=== PATIENT | male | born 1955 | race Caucasian/White ===

== ENCOUNTER → 2016-07-09 | Outpatient (CLI) | payer OTHER ==
[~2016-07-09] MED LIST: ASPIRIN PO; LIPITOR PO; LISINOPRIL10 MG PO; METOPROLOL SUC100 MG PO; [UNRECOGNIZED DRUG - REMARK]
--- NOTE | ~2016-07-09 | CR142 ---
[facility] A Service of [facility] RADIOLOGY TEXT RESULTS PATIENT: LATANYA ORTEGA LOCATION: [facility] : 59 UNIT #: [id number] AGE: [address]: Celena Tavarez MD SEX: M ORDER DR: [id number] [facility] [address] [place], [place] [address] [id number] O MR#: [id number] Acc #: [id number] NAME: LATANYA ORTEGA : 1955 SEX: M STUDY DATE/TIME: 07/09/2016 10:46 UNIT: [facility] ROOM: STUDY DESCRIPTION: CR Hand Min 3 Views Rt Attending Physician: Celena Tavarez M.D. Ordering Physician: Celena Tavarez M.D. Primary Care Physician: Celena Tavarez M.D. MEDICAL IMAGING REPORT This report is preliminary unless electronic signature is present EXAM Right hand, 3 views. HISTORY Arthritis hand pain for 6 months to a year. Limited range of motion. FINDINGS 3 views of the right hand demonstrates no fracture or dislocation. Minimal arthritic changes seen at the DIP joints of the index, long finger. Mild arthritic changes of the IP joint of the thumb. No erosive changes identified. Minimal arthritic changes are also seen at the third MCP joint. Soft tissues are unremarkable. IMPRESSION Multifocal arthritis pattern most compatible with osteoarthritis or degenerative arthropathy primarily involving the DIP joints of the index and long finger and also at the IP joint of the thumb. No evidence of erosive or inflammatory arthropathy. Dictated by... Virgie Kat M.D. THIS IS AN ELECTRONICALLY VERIFIED REPORT Virgie Kat M.D. at 07/10/2016 5:02 PM ADELINE/bo TD: 07/10/2016 10:42 JOB #: [id number] MEDICAL IMAGING REPORT COPY
--- NOTE | ~2016-07-09 | CR141 ---
[facility] A Service of [facility] RADIOLOGY TEXT RESULTS PATIENT: LATANYA ORTEGA LOCATION: [facility] : 59 UNIT #: [id number] AGE: [address]: Celena Tavarez MD SEX: M ORDER DR: [id number] [facility] [address] [place], [place] [address] [id number] O MR#: [id number] Acc #: [id number] NAME: LATANYA ORTEGA : 1955 SEX: M STUDY DATE/TIME: 07/09/2016 10:46 UNIT: [facility] ROOM: STUDY DESCRIPTION: CR Hand Min 3 Views Lt Attending Physician: Celena Tavarez M.D. Ordering Physician: Celena Tavarez M.D. Primary Care Physician: Celena Tavarez M.D. MEDICAL IMAGING REPORT This report is preliminary unless electronic signature is present EXAM Left hand, 3 views. HISTORY 60-year-old male with history of arthritis. Bilateral hand pain for 6 months to a year. Limited range of motion. FINDINGS 3 views of the left hand demonstrates mild multifocal osteoarthritis or degenerative arthropathy of the hand. This is most prominent IP joint of the thumb with asymmetric joint space narrowing, marginal osteophyte. Arthritic changes also seen at the STT articulation in the wrist and also at the first CMC joint. No erosive changes identified. Minimal periarticular soft tissue swelling about the DIP joint of the index finger. Bone mineralization appears normal. No soft tissue calcifications. Arthritic changes are also seen at the DIP joints of the long finger and, also, the fourth and fifth fingers. IMPRESSION Mild multifocal osteoarthritis of the left hand, primarily involving the IP joint of the thumb and the DIP joints of the second through fifth fingers. No erosive changes identified to suggest inflammatory arthropathy. There is also mild degenerative changes at the first CMC joint, first MCP joint and at the scaphotrapezial articulations of the wrist. Dictated by... Virgie Kat M.D. THIS IS AN ELECTRONICALLY VERIFIED REPORT Virgie Kat M.D. at 07/10/2016 5:02 PM ADELINE/bo [facility] A Service of [facility] RADIOLOGY TEXT RESULTS PATIENT: LATANYA ORTEGA LOCATION: [facility] : 59 UNIT #: [id number] AGE: [address]: Celena Tavarez MD SEX: M ORDER DR: TD: 07/10/2016 10:27 JOB #: [id number] MEDICAL IMAGING REPORT COPY
== END | disposition home or self-care (01) ==
LOC: CRAD 10:25
DX: M79.642 Pain in left hand (principal); M79.641 Pain in right hand; M19.042 Primary osteoarthritis, left hand; M19.041 Primary osteoarthritis, right hand
CPT/HCPCS: 73130